=== PATIENT | male | born 1950 | race Caucasian/White ===

== ENCOUNTER 2018-10-19 12:22 | Observation (INO) | payer MEDICARE ==
[~2018-10-19] VITALS: Ht 165.1 cm; Wt 115.3 kg
--- NOTE | ~2018-10-19 | HP ---
PATIENT: GUSTAVO BHANDARI MEDICAL RECORD: [id number] ACCOUNT: [id number] [facility] : [facility] ADMISSION DATE: 10/19/18 PCP: HERIBERTO JAIME MD HISTORY AND PHYSICAL EXAMINATION HISTORY OF PRESENT ILLNESS: A 68-year-old gentleman with a known history of coronary artery disease status post intervention, has history of dyslipidemia, has been having intermittent chest pain, felt this is more indigestion, reports chest congestion with exertion, but also after eating, had an episode yesterday while straining at the toilet ____ chest pain and then kwaku syncope. Unknown how long he was down, transferred here from [place] for further evaluation. PAST MEDICAL HISTORY: Includes; 1. History of coronary artery disease. 2. Hyperlipidemia. ALLERGIES: PENICILLIN. MEDICATIONS: Include Pravastatin 40 mg p.o. day, aspirin 81 every day. SOCIAL HISTORY: Lives in [place]. Nonsmoker, nondrinker. He takes care of all his ADLs. REVIEW OF SYSTEMS: The patient reports easy bruising but reports no swollen glands. The patient reports no fever, no night sweats, no significant weight gain, no significant weight loss. No significant exercise tolerance. The patient reports no dry eyes, no irritation, no vision change. Patient reports no difficulty hearing and no ear pain. Patient reports no frequent nose bleeds or nose and sinus problems. Patient reports on arm pain on exertion. No shortness of breath while lying down. No history of heart murmur. Patient reports no cough, no wheezing or coughing up blood. Patient reports no abdominal pain, no vomiting. Normal appetite. No diarrhea and not vomiting blood. No nausea and no constipation. Patient reports no incontinence. No difficulty urinating. No hematuria. No increased frequency. Patient reports no muscle aches. No weakness, no arthralgias, no back pain. No swelling of the extremities. Patient reports no abnormal mole, no jaundice, no rashes. Reports no loss of consciousness. No weakness and no numbness. No seizures, dizziness, or headaches. The patient reports no depression, no sleep disturbance, feeling safe in a relationship and no alcohol abuse. Patient reports on fatigue. Reports no runny nose or sinus pressure. No itching, no hives, and no frequent sneezing. PHYSICAL EXAMINATION: GENERAL: Pleasant gentleman, in no distress. VITAL SIGNS: Blood pressure 133/58, pulse 60 and regular. HEENT: Normocephalic, atraumatic. NECK: No bruits noted. HEART: Regular, II/ systolic ejection murmur. LUNGS: Good air excursion. ABDOMEN: Soft, nontender. EXTREMITIES: Pulses 2+ with no edema. NEUROLOGIC: Grossly intact. DIAGNOSTIC DATA: At this point, ECG without acute change. HISTORY AND PHYSICAL [id number] GUSTAVO BHANDARI IMPRESSION: Chest pain accompanied by syncope. PLAN: Plan for angiography to visualize anatomy as well as 4-vessel. TRANSINT:[id number] Voice Confirmation ID: [id number] DOCUMENT ID: [id number] ASHLEY DEL TORO MD at 1546 CC: [id number] DICTATION DATE: 10/20/18831 REPRODUCTION MACHINE LOADER: 10/20/18 1217 DIS IN 10/20/18 [id number] [place] [address]
--- NOTE | ~2018-10-19 | HEMODYNAMI ---
PATIENT:GUSTAVO BHANDARI MEDICAL RECORD: [id number] : 52 LOCATION:[facility] D.2117 ADMISSION DATE: 10/19/18 Generatedon:10/20/20189:48 Patient name: GUSTAVO BHANDARI Patient #: [id number] SSN: : 1950 Date of study: 10/20/2018 Page: Of Hemodynamic Procedure Report Patient Data Patient Demographics Procedure consent was obtained First Name: GUSTAVO Gender: Male Last Name: THONY : 1950 Patient #: [id number] Age: 68 year(s) Race: Additional ID: [id number] Contact details [address]: [address] [place] [address] ROAD State: [place] City: [place] Zip code: [address] Admission Admission Data Admission Date: 10/19/2018 Admission Time: 14:18 Room #: D.2117 Procedure Procedure Types Cath Procedure Diagnostic Procedure LHC LH w/Coronaries PCI Procedure Coronary Stent Coronary Stent Initial Peripheral Cath Diagnostic Procedure Go Cart Mechanic Peripheral Procedures Four Vessel Arteriogram Procedure Description Procedure Date Procedure Date: 10/20/2018 Procedure Start Time: 9:14 Procedure End Time: 9:39 Procedure Staff Name Function Kyle Shah MD Performing Physician Maxine Jane RT Monitor Norma Cole RT Scrub Hayder Anglin RN Nurse Procedure Data Cath Procedure Fluoroscopy Diagnostic fluoroscopy Total fluoroscopy Time: 7 time: 7 min min Diagnostic fluoroscopy Total fluoroscopy dose: dose: 2265 mGy 2265 mGy Contrast Material Contrast Material Type Amount (ml) Isovue 300 164 Entry Location Entry Primary Successful Side Size Upsize Upsize Entry Closure Succes sful Closure Location (Fr) 1 (Fr) 2 (Fr) Remarks Device Remarks Femoral Right 5 Fr 6 Fr Exoseal artery Short Estimated blood loss: 5 ml Diagnostic catheters Device Type Used For End Catheter Placement MULTIPACK JL 4.0 5Fr Left Coronary catheter Angiography MULTIPACK 3DRC 5Fr Right Coronary catheter Angiography MULTIPACK Pigtail 5 Fr LV Angiography catheter Procedure Complications No complications Procedure Medications Medication Administration Route Dosage 0.9% NaCl I.V. 100 ml/hr Oxygen etCO2 Nasal cannula 2 l/min Heparin Flush Bag added to field 2 bags (1000units/500ml NS) Lidocaine 2% added to field 20 Versed I.V. 1 mg Fentanyl I.V. 50 mcg Versed I.V. 1 mg Fentanyl I.V. 50 mcg Heparin Bolus I.V. 5000 units Integrilin (Bolus I.V. 10.7 ml 2mg/ml) Integrilin (Bolus wasted 9.3 ml 2mg/ml) Plavix P.O. 600 mg Hemodynamics Rest Heart Rate: 56 (bpm) Pressure Samples Time Site Value (mmHg) Purpose Heart Use Rate(bpm) 9:24 LV 137/15,20 Snapshot 58 9:24 AO 175/124(100) Pullback 59 9:24 LV 141/16,21 Pullback 59 Gradients Valve Time Site 1 Site 2 Mean SEP/DFP Peak To Heart Use (mmHg) (sec/min) Peak Rate (mmHg) (bpm) Aortic 9:24 LV AO 0 16 0 59 141/16,21 175/124(100) Calculations Valve P-P Mean Valve Index Valve Source Name Gradient Area Flow (cm2) Aortic 0 0 0 0 Snapshots Pre Cath Intra NCS Post Cath Vital Signs Time Heart Resp SPO2 etCO2 NIBP (mmHg) Rhythm Pain Sedation Rate (ipm) (%) (mmHg) Status Level (bpm) 8:38:08 57 21 97 40.8 160/86(131) NSR 0 (11) 10(A) , No pain 8:42:32 57 20 96 40.1 133/86(106) NSR 0 (11) 10(A) , No pain 8:46:46 58 18 94 44.6 141/90(114) NSR 0 (11) 10(A) , No pain 8:51:04 57 18 93 46.1 135/81(110) NSR 0 (11) 10(A) , No pain 8:55:18 58 19 92 45.4 133/87(111) NSR 0 (11) 10(A) , No pain 8:59:32 56 19 93 45.4 134/80(98) NSR 0 (11) 10(A) , No pain 9:03:50 59 16 92 41.6 130/77(111) NSR 0 (11) 10(A) , No pain 9:08:06 56 19 93 46.1 145/77(118) NSR 0 (11) 10(A) , No pain 9:12:28 55 20 93 44.6 134/78(116) NSR 0 (11) 10(A) , No pain 9:16:44 58 21 95 47.7 137/74(118) NSR 0 (11) 10(A) , No pain 9:21:02 58 19 94 46.9 134/76(108) NSR 0 (11) 10(A) , No pain 9:25:18 59 18 94 46.9 135/83(108) NSR 0 (11) 10(A) , No pain 9:29:36 61 18 94 46.1 127/79(112) NSR 0 (11) 10(A) , No pain 9:33:50 61 19 90 45.4 125/77(105) NSR 0 (11) 10(A) , No pain 9:38:04 56 21 94 46.9 133/75(114) NSR 0 (11) 10(A) , No pain Medications Time Medication Route Dose Verified Delivered Reason Notes Ef fectiveness by by 8:40:37 0.9% NaCl I.V. 100 Hayder Hayder Per ml/hr Linnette Anglin physician RN RN 8:40:48 Oxygen etCO2 2 Hayder Hayder Per Nasal l/min Linnette Anglin physician cannula RN RN 8:40:58 Heparin Flush added 2 Hayder Hayder used for Bag to bags Linnette Anglin procedure (1000units/500ml RN RN NS) 8:41:08 Lidocaine 2% added 20ml Hayder Hayder for local to vial Linnette Anglin anesthetic RN RN 9:08:37 Versed I.V. 1 mg Hayder Hayder for sedation Linnette Anglin RN RN 9:08:46 Fentanyl I.V. 50 Hayder Hayder for sedation mcg Linnette Anglin RN RN 9:14:51 Versed I.V. 1 mg Hayder Hayder for sedation Linnette Anglin RN RN 9:14:57 Fentanyl I.V. 50 Hayder Hayder for sedation mcg Linnette Anglin RN RN 9:27:08 Heparin Bolus I.V. 5000 Hayder Hayder for units Linnette Anglin antiplatelet RN RN therapy 9:27:26 Integrilin I.V. 10.7 Hayder Hayder for (Bolus 2mg/ml) ml Linnette Anglin antiplatelet RN RN therapy 9:27:37 Integrilin wasted 9.3 Hayder Hayder to sharp's (Bolus 2mg/ml) ml Linnette Anglin RN RN 9:40:01 Plavix P.O. 600 Hayder Hayder for mg Linnette Anglin antiplatelet RN RN therapy Procedure Log Time Note 8:22:21 Informed consent obtained and on chart 8:22:55 Norma Cole RT(R) sent for patient. Start room use. 8:22:56 Time tracking: Regular hours (M-F 7:00 - 5:00) 8:23:01 Plan of Care:Hemodynamics will remain stable., Cardiac rhythm will remain stable., Comfort level will be maintained., Respiratory function will remain adequate., Patient/ family verbilizes understanding of procedure., Procedure tolerated without complication., Recovers from procedure without complications.. 8:30:26 Patient received from Med II to CCL 2 Alert and oriented. Tansferred to table in Supine position. 8:30:27 Warm blankets applied, and nicholas hugger turned on for patient comfort. 8:30:27 Correct patient and procedure confirmed by team. 8:30:28 ECG and BP/O2 sat monitors applied to patient. 8:36:49 Vital chart was started 8:36:50 Baseline sample Acquired. 8:36:53 Rhythm: sinus rhythm 8:36:54 Full Disclosure recording started 8:36:59 H&P Date Dictated: 10/20/2018 Within 30 days and on chart., H&P Addendum completed by physician on day of procedure. (MUST COMPLETE FOR ALL OUTPATIENTS). 8:37:01 Pre-procedure instructions explained to patient. 8:37:01 Pre-op teaching completed and patient verbalized understanding. 8:37:02 Family in waiting room. 8:37:04 Patient NPO since Midnight. 8:37:05 Is the patient allergic to Iodine/contrast media? No. 8:37:06 Was the patient premedicated? No 8:38:53 Is patient on blood thinner?No 8:38:54 Patient diabetic? No. 8:38:56 Previous problem with sedation/anesthesia? No ? 8:38:57 Snore? Yes 8:38:58 Sleep apnea? No 8:38:59 Deviated septum? No 8:39:00 Opens mouth fully? Yes 8:39:01 Sticks out tongue? Yes 8:39:06 Airway obstruction? No ? 8:39:09 Dentures? No ? 8:39:12 Pre procedure: right dorsailis pedis pulse 1+ Palpable, but thready & weak; easily obliterated 8:39:14 Pre procedure: left dorsailis pedis pulse 1+ Palpable, but thready & weak; easily obliterated 8:39:16 Patient pain scale 0/10 ?. 8:39:40 IV patent on arrival in left forearm with 0.9% NaCl at [facility]. 8:39:43 Lab results completed and on chart. 8:39:48 Right groin area was prepped with chlora-prep and draped in sterile fashion 8:39:48 Alarms reviewed by R. N. 8:39:49 Sharps counted by scrub and verified by R.N. 8:40:37 0.9% NaCl 100 ml/hr I.V. was administered by Hayder Anglin RN; Per physician; 8:40:48 Oxygen 2 l/min etCO2 Nasal cannula was administered by Hayder Anglin RN; Per physician; 8:40:58 Heparin Flush Bag (1000units/500ml NS) 2 bags added to field was administered by Hayder Anglin RN; used for procedure; 8:41:08 Lidocaine 2% 20ml vial added to field was administered by Hayder Anglin RN; for local anesthetic; 9:05:50 Physician arrived 9:05:50 --------ALL STOP TIME OUT------ 9:05:51 Final Timeout: patient, procedure, and site verified with staff and physician. All members of the team are in agreement. 9:05:55 Right groin site verified by team. 9:05:57 Physical assessment completed. ASA score P 2 - A patient with mild systemic disease as per Kyle Shah MD. 9:06:01 Sedation plan: IV Moderate Sedation Medication:Versed, Fentanyl 9:06:08 Use device set Femoral Dx 9:06:10 ACIST Syringe (98375) opened to sterile field. 9:06:10 Bag Decanter (2002S) opened to sterile field. 9:06:10 Medline Cath Pack ([id number]) opened to sterile field. 9:06:11 DIAGNOSTIC WIRE .035 260cm J wire (254219) opened to sterile field. 9:06:12 ACIST Hand Control (11345) opened to sterile field. 9:06:12 ACIST Manifold (09130) opened to sterile field. 9:06:13 DIAGNOSTIC Multipack 5Fr catheter set (PB9255) opened to sterile field. 9:06:13 Tegaderm 4 x 4 (1626W) opened to sterile field. 9:06:14 SHEATH 5FR [place] (JJN700) opened to sterile field. 9:08:37 Versed 1 mg I.V. was administered by Hayder Anglin RN; for sedation; 9:08:46 Fentanyl 50 mcg I.V. was administered by Hayder Anglin RN; for sedation; 9:14:31 Procedure started. 9:14:38 Local anesthetic to right femoral artery with Lidocaine 2% by Kyle Shah MD.INITIAL ACCESS ONLY 9:14:51 Versed 1 mg I.V. was administered by Hayder Anglin RN; for sedation; 9:14:57 Fentanyl 50 mcg I.V. was administered by Hayder Anglin RN; for sedation; 9:16:40 A 5 Fr sheath was inserted into the Right Femoral artery 9:16:45 A MULTIPACK JL 4.0 5Fr catheter was advanced over the wire and used for Left Coronary Angiography. 9:16:47 LCA angiography performed. 9:16:50 Injector settings: Ml/sec: 3, Volume: 6, 9:18:17 Catheter removed. 9:18:23 A MULTIPACK 3DRC 5Fr catheter was advanced over the wire and used for Right Coronary Angiography. 9:19:35 RCA angiography performed. 9:19:38 Injector settings: Ml/sec: 3, Volume: 6, 9:20:24 Bilateral carotid angiography performed. 9:20:28 Bilateral subclavian angiography performed 9:21:34 SHEATH 6FR [place] (GLX733) opened to sterile field. 9:21:34 GUIDE 6FR HS I SH catheter ([id number]) opened to sterile field. 9:21:35 INFLATOR Merit BasixCompak (KI8815) opened to sterile field. 9:21:35 WHISPER 300cm guide wire ([id number]) opened to sterile field. 9:21:52 Catheter removed. 9:21:58 A MULTIPACK Pigtail 5 Fr catheter was advanced over the wire and used for LV Angiography. 9:24:11 LV hemodynamics recorded. 9:24:12 LV gram done using HSU 9:24:15 Injector settings: Ml/sec: 5, Volume: 15, 9:24:35 EF : 50 % 9:25:11 Catheter removed. 9:25:12 Proceeding to intervention. 9:25:22 Sheath upsized to a 6 Fr Short. 9:25:49 6 Fr hs1 sh guide catheter was inserted over the wire 9:27:08 Heparin Bolus 5000 units I.V. was administered by Hayder Anglin RN; for antiplatelet therapy; 9:27:26 Integrilin (Bolus 2mg/ml) 10.7 ml I.V. was administered by Hayder Anglin RN; for antiplatelet therapy; 9:27:37 Integrilin (Bolus 2mg/ml) 9.3 ml wasted was administered by Hayder Anglin RN; to sharp's; 9:28:23 whisper wire advanced. 9:33:52 Place stent Inflation Number: 1 A INTEGRITY OTW 3.5 X 12 stent ([id number]) was prepped and advanced across the Prox RCA. The stent was deployed at 17 ODETTE for 0:30 (min:sec). 9:35:07 Inflation number: 2 The stent balloon was then re-inflated across the Prox RCA to 14 ODETTE for 0:10 (min:sec). 9:35:36 Stent catheter was removed intact over wire. 9:35:36 Wire removed. 9:35:36 Guide catheter removed. 9:35:48 Sheath removed intact; hemostasis achieved with Exoseal to the Right Femoral artery. 9:36:30 Procedure ended.(Physican Out) 9:36:43 Fluoroscopy time 07.00 minutes. 9:36:46 Fluoroscopy dose: 2265 mGy 9:36:46 Flurop Dose total: 2265 9:36:50 Contrast amount:Isovue 300 164ml. 9:36:52 Sharps counted by scrub and verified by R.N. 9:36:53 Insertion/operative site no bleeding no hematoma. 9:37:10 Post-op/insertion site Right Femoral artery dressed using a 4 x 4 and Tegaderm. 9:37:13 Post right femoral artery:stable 9:37:14 Post Procedure Pulses reassessed and unchanged 9:37:17 Post procedure rhythm: unchanged. 9:37:19 Estimated blood loss: 5 ml 9:37:21 Post procedure instruction explained to patient.Patient verbalizes understanding. 9:37:21 Patient needs reinforcement of post procedure teaching. 9:39:07 Procedure type changed to Cath procedure, Diagnostic procedure, LHC, LHC w/Coronaries, PCI procedure, Coronary Stent, Coronary Stent Initial, Peripheral Cath Diagnostic Procedure, Go Cart Mechanic Peripheral Procedures, Four Vessel Arteriogram 9:39:18 Procedure and supply charges have been captured, reviewed, submitted and are correct. 9:39:22 Procedure Complication : No complications 9:39:24 Vital chart was stopped 9:39:25 See physician's report for complete and final results. 9:39:33 Report given to [facility]. 9:39:35 Patient transfered to [facility] with Stretcher. 9:39:37 Procedure ended. 9:39:37 Full Disclosure recording stopped 9:39:47 ACC-PCI Only Patient was given prescriptions, or instructed by Kyle Shah MD to start/continue the following medications upon discharge: Plavix 9:39:48 End room use (Document Last) 9:40:01 Plavix 600 mg P.O. was administered by Hayder Anglin RN; for antiplatelet therapy; 9:42:30 EXOSEAL 6Fr (EX600) opened to sterile field. Intervention Summary Intervention Notes Time ActionType Lesion and Equipment Action# Pressure Duration Attributes Used 9:33:52 Place stent Prox RCA INTEGRITY 1 17 00:30 OTW 3.5 X 12 stent ([id number]) 9:35:07 Reinflate Prox RCA INTEGRITY 2 14 00:10 stent OTW 3.5 X balloon 12 stent ([id number]) Device Usage Item Name Manufacture Quantity Catalog Hospital Part Current Minimal L ot# / Number Charge Number Stock Stock Serial# Code ACIST Acist 1 69004 014413 630496 109774 20 Syringe Work Market (91514) Systems Inc Bag Microtek 1 895502 63056 282669 5 DecEqiancheng.com Inc. () Medline Medline 1 [id number] 200827 80472 099142 5 Cath Pack ([id number]) DIAGNOSTIC St Van 1 994641 213387 326879 509346 30 WIRE .035 260cm J wire (354550) ACIST Hand Acist 1 51963 217094 291141 911465 5 Control Medical (01610) Systems Inc ACIST Acist 1 28146 474525 409586 364269 5 Manifold Medical (91537) Systems Inc DIAGNOSTIC Cardinal 1 SQ1830 589936 34259 074623 30 Multipack Health 5Fr catheter set (QL6796) Tegaderm 4 3M 1 1626W 944087 017505 445667 5 x 4 (1626W) SHEATH 5FR Terumo 1 UWH457 221702 331944 896331 5 [place] (EER640) MULTIPACK Cardinal 1 459181 5 JL 4.0 5Fr Health catheter MULTIPACK Cardinal 1 730866 5 3DRC 5Fr Health catheter SHEATH 6FR Terumo 1 GZP704 154124 167434 423608 40 [place] (HAE754) GUIDE 6FR Medtronic 1 [id number] 720208 88879 704433 1 HS I SH catheter ([id number]) INFLATOR Merit 1 NV7981 701606 129226 989125 15 [facility] Medical BasixCompak (GN3330) WHISPER Lopez 1 [id number] 136115 105392 493227 5 300cm guide Vascular wire ([id number]) MULTIPACK Cardinal 1 546129 5 Pigtail 5 Health Fr catheter INTEGRITY Medtronic 1 [id number] 644575 590998 1 0 [id number] OTW 3.5 X 12 stent ([id number]) EXOSEAL 6Fr Cardinal 1 EX600 037064 409616 759072 10 (EX600) Health Signature Audit Burton Stage Time Signature Unsigned Intra-Procedure 10/20/2018 Maxine Jane 9:48:16 AM RT(R) Signatures Monitor : Maxine Jane RT Signature : Date : Time : [facility] [address] [place] [address]
--- NOTE | ~2018-10-19 | OP ---
PATIENT NAME: GUSTAVO BHANDARI MEDICAL RECORD: [id number] :52 LOCATION:[facility]CL[facility] ADMISSION DATE:10/19/18 SURGEON: ASHLEY DEL TORO MD DATE OF OPERATION: 10/20/2018 PROCEDURE: Left heart catheterization, selective coronary angiography, plus 4 vessel right femoral artery approach. CATHETERS: A 5-Korean sheath, 5/4 left and right Kartik, 5/4 pig. The procedure was well tolerated. The patient returned to lopez, sheath removed. ExoSeal device placed. FINDINGS: Four-vessel arteriography: Right common carotid was selectively engaged. This shows luminal wall disease with some calcification, but no significant stenosis. Right external carotid shows about 50% stenosis, but no flow obstructive disease. Right internal carotid is free of disease. The left common carotid was selectively engaged. There are luminal irregularities, but no flow obstructive stenosis. Left external carotid: Luminal irregularities. No significant stenosis. Left internal carotid is smooth-walled vessel, free of disease. CORONARY ANGIOGRAPHY: Left ventriculography in 30-degree HSU view: Normal wall motion and normal systolic function. CORONARY ANATOMY: LEFT MAIN: Left main is free of disease. LAD: LAD in the area of previous stenting is widely patent without evidence of restenosis. No progression of resighini disease. CIRCUMFLEX: Circumflex free of disease. RIGHT CORONARY ARTERY: Has what appears to be a ruptured plaque right at the ostium right at the level of the SA node, certainly could cause bradyarrhythmia, syncope, and chest pain. DESCRIPTION OF PROCEDURE: A 5-Korean sheath was exchanged for a 6-Korean sheath. A hockey stick guide catheter provided good guide catheter support followed by 300 cm Whisper wire, was placed across the tightly occluded ostial right down this portion of vessel. Stent deployed was a 3.5 x 12 up to 14 atmospheres. Final angiography shows excellent resolution of 90% plus ostial stenosis with fissured plaque stenosis, no residual. NOEL flow was 3 throughout the procedure. Integrilin was used during the case. Sheath closed with ExoSeal device. TRANSINT:[id number] Voice Confirmation ID: [id number] DOCUMENT ID: [id number] ASHLEY DEL TORO MD at 1544 CC: [id number] DICTATION DATE: 10/20/18 0959 TECHNICAL DATA ANALYST: 10/20/18 1031 DIS IN 10/20/18 [facility] [address] [place] [address]
[~2018-10-19 12:22] MED LIST: ASCORBIC ACID500 MG PO; BAYER ASPIRIN325 MG PO; OS-CAL500 MG PO; PLAVIX75 MG PO; POTASSIUM99 M1 PO; PRAVACHOL20 MG PO
[2018-10-19 13:54] VITALS: BP 118/59
[2018-10-19 14:30] VITALS: BP 137/51
[2018-10-19 14:56] VITALS: BP 127/70
[2018-10-19 14:56] LABS: CREATINE KINASE 127 UL (21-232)
[2018-10-19 14:58] LABS: TROPONIN-I < 0.017 ng/mL (0.000-0.060)
[2018-10-19 15:48] VITALS: BP 125/73; Ht 165.1 cm; Wt 115.3 kg
[2018-10-19] MEDS ORDERED: IMODIUM2 MG PO (15:56)
[2018-10-19 17:00] VITALS: BP 134/60
[2018-10-19 20:49] LABS: CKMB 3.1 U/L (0.0-3.6); CREATINE KINASE 140 UL (21-232); TROPONIN-I < 0.017 ng/mL (0.000-0.060)
[2018-10-20] VITALS: BP 140/69
[2018-10-20 02:54] LABS: CKMB 2.5 U/L (0.0-3.6); CREATINE KINASE 132 UL (21-232); TROPONIN-I < 0.017 ng/mL (0.000-0.060)
[2018-10-20 05:51] VITALS: BP 133/58
[2018-10-20 08:33] VITALS: BP 137/74
[2018-10-20 09:05] LABS: BASOPHILS 0.2 % (0-2); EOSINOPHILS 3.2 % (0-7); HEMATOCRIT 39.5 % (42.0-54.0); HEMOGLOBIN 13.1 g/dL (13.5-17.5); IMMATURE GRANULOCYTES 0.3 % (0-5); LYMPHOCYTES 30.7 % (15-50); MCH 30.5 pg (26.0-34.0); MCHC 33.2 g/dL (31.0-37.0); MCV 92.1 fL (80.0-100.0); MEAN PLATELET VOLUME 10.4 fL (7.4-10.4); MONOCYTES 9.6 % (2-11); PLATELET COUNT 187 10x3/uL (130-400); RBC 4.29 10x6/uL (4.20-6.10); RDW 13.4 % (11.5-14.5); WBC 6.5 10x3/uL (4.8-10.8)
[2018-10-20 09:09] LABS: ANION GAP 11.3 mmol/L (8-16); CALCIUM 7.9 mg/dL (8.5-10.1); CARBON DIOXIDE 31.3 mmol/L (21.0-32.0); CREATININE - SERUM 1.1 mg/dL (0.6-1.3); POTASSIUM - SERUM 4.6 mmol/L (3.5-5.1)
== END 2018-10-20 15:15 | disposition home or self-care (01) ==
LOC: D.ER 12:22 → D.EDHOLD 14:18 → D.CLR 14:18 → OBSVTIME 14:19 → D.M2 15:05 → D.CLR 10-20 09:56
PROVIDERS: Emergency Medicine; Internal Medicine Interventional Cardiology
DX: R55 Syncope and collapse (principal); I25.10 Atherosclerotic heart disease of native coronary artery without angina pectoris; E78.5 Hyperlipidemia, unspecified; I65.21 Occlusion and stenosis of right carotid artery